=== PATIENT | female | born 1970 | race Caucasian/White ===

== ENCOUNTER → 2016-11-02 | Outpatient (CLI) | payer BC | END | disposition home or self-care (01) | LOC: C.PAPS 14:24 | PROVIDERS: ATTEND Obstetrics & Gynecology | DX: Z01.419 Encounter for gynecological examination (general) (routine) without abnormal findings (principal) ==

== ENCOUNTER → 2016-11-17 | Outpatient (CLI) | payer BC ==
--- NOTE | 2016-11-21 12:26 | MAMMOGRAPHY REPORT ---
BILATERAL DIGITAL SCREENING MAMMOGRAM TOMOSYNTHESIS WITH CAD: 11/17/2016 CLINICAL HISTORY: Routine screening. Patient has no complaints. TECHNIQUE: Breast tomosynthesis in addition to standard 2D mammography was performed. Current study was also evaluated with a Computer Aided Detection (CAD) system. COMPARISON: Comparison is made to exams dated: 07/28/2015 mammogram, 08/01/2014 mammogram, 01/08/2014 ma mmogram, 07/04/2013 mammogram, and 07/01/2013 mammogram. The 2016 mammogram tomosynthesis images co uld only be viewed on the CD. BREAST COMPOSITION: The tissue of both breasts is heterogeneously dense, which may obscure small ma sses. FINDINGS: There is an oval partially circumscribed and partially obscured 17 mm mass seen within th e left upper outer quadrant, best seen on the tomosynthesis images, which is increased compared to t he 2016 exam. Recommend ultrasound for further evaluation. This likely represents a cyst. The remainder of both breasts demonstrate no suspicious masses, calcifications, or areas of architec tural distortion. Scattered bilateral benign-appearing calcifications are again noted. A few other smaller circumscribed benign-appearing masses are seen bilaterally, which are stable and likely rep resent cysts. IMPRESSION: ACR BI-RADS CATEGORY 0: INCOMPLETE EVALUATION: NEED ADDITIONAL IMAGING EVALUATION Left upper outer quadrant breast mass, for which additional imaging evaluation is recommended. The patient will be called to schedule an appointment. Approximately 10% of breast cancers are not detected with mammography. A negative mammographic repor t should not delay biopsy if a clinically suggestive mass is present. Linda Macario M.D. /:11/18/2016 17:04:09 Lead Blender: Krystin Epperson, [facility] letter sent: Addl Imaging 0 BI-RADS Code: ACR BI-RADS Category 0: Incomplete Evaluation: Need Additional Imaging Evaluation
== END | disposition home or self-care (01) ==
LOC: C.MAMM 10:07
PROVIDERS: ATTEND Obstetrics & Gynecology
DX: Z12.31 Encounter for screening mammogram for malignant neoplasm of breast (principal); N63 Unspecified lump in breast

== ENCOUNTER → 2016-11-28 | Outpatient (CLI) | payer BC ==
--- NOTE | 2016-11-28 16:06 | MAMMOGRAPHY REPORT ---
ULTRASOUND OF LEFT BREAST: 11/28/2016 CLINICAL HISTORY: 45-year-old woman called back from screening mammography for a 17 mm partially cir cumscribed and partially obscured mass in the upper outer approximate 1:00 left breast. COMPARISON: Comparison: Prior mammograms dated 07/01/2013, 01/08/2014, 08/01/2014, 08/07/2015 and . FINDINGS: Real-time high-resolution ultrasound was performed in the superior and lateral left breas t. In the 12:00 axis, 4 cm from the nipple, there is an oval circumscribed anechoic simple cyst wit h posterior acoustic enhancement, measuring 12.6 x 7.7 x 15.8 mm. This correlates well with the dom inant, partially circumscribed mammographic mass and is benign. Incidental note is made of other be nign anechoic simple cysts within the 2:00 left breast, 2 cm from the nipple, measuring 7.2 x 3.6 x 7.4 mm, and elsewhere in the 12:00 axis. However, there is a hypoechoic solid versus cystic mass in the 1:30 left breast, 4 cm from the nipple, measuring 5.0 x 4.6 x 6.1 mm. This could represent a c omplicated cyst as a possible fluid fluid level is identified. Nevertheless, a short interval follo w-up targeted left breast ultrasound in the 1:30 axis is recommended to ensure stability in 6 months . IMPRESSION: ACR-BI-RADS CATEGORY 3: PROBABLY BENIGN - FOLLOW-UP RECOMMENDED 1. The partially circumscribed and obscured dominant 17 mm mass in the upper outer quadrant of the left breast correlates with a benign anechoic simple cyst on ultrasound. No further workup is neede d at this time. 2. Incidental note is made of a hypoechoic 6 mm solid versus cystic mass in the 1:30 left breast, 4 cm from the nipple, which could represent a complicated cyst or benign fibroadenoma. A short inter carolyne follow-up targeted left breast ultrasound is recommended to ensure stability in 6 months. These results and recommendations were discussed with the patient at the time of the exam. She tent atively scheduled a follow-up appointment prior to leaving our department. Erlinda Meza M.D. ay/:11/28/2016 14:47:52 Vocational Horticulture Instructor: Dr. Erlinda Meza, [facility] letter sent: Follow Up Recommended 3 BI-RADS Code: ACR-BI-RADS Category 3: Probably Benign
== END | disposition home or self-care (01) ==
LOC: C.MAMM 13:51
PROVIDERS: ATTEND Obstetrics & Gynecology
DX: N63 Unspecified lump in breast (principal); N60.02 Solitary cyst of left breast

== ENCOUNTER → 2017-11-21 | Outpatient (CLI) | payer OTHER ==
--- NOTE | 2017-11-21 12:47 | MAMMOGRAPHY REPORT ---
BILATERAL DIGITAL DIAGNOSTIC MAMMOGRAM TOMOSYNTHESIS WITH CAD AND TARGETED BILATERAL ULTRASOUND: 2017 CLINICAL HISTORY: 46-year-old woman presents at time of annual screening exam but also close follow-u p of a probably benign hypoechoic mass identified in the 1:30 left breast on ultrasound. She has a h istory of numerous cysts seen in the left breast on ultrasound, compatible with fibrocystic change. TECHNIQUE: Bilateral breast tomosynthesis in addition to standard 2D mammography was performed. Curre nt study was also evaluated with a Computer Aided Detection (CAD) system. COMPARISON: Comparison is made to exams dated: 05/31/2017 ultrasound, 11/28/2016 ultrasound, 11/17/2016 mammogram - [facility], 07/28/2015 mammogram, 08/01/2014 mammogram, and 01/08/2014 mammo gram. BREAST COMPOSITION: The tissue of both breasts is heterogeneously dense, which may obscure small mas ses. FINDINGS: There are multiple bilateral circumscribed masses scattered in the breasts, which is a typi jade benign mammographic pattern. The dominant 17 mm circumscribed oval mass in the upper outer jo ann roximate 12:00 to 1:00 left breast is stable in size comparing to the prior mammogram. This was prev iously documented to represent a simple cyst on ultrasound. There is a newly visualized, 8.5 x 7.6 m m lobulated and circumscribed mass in the lateral posterior right breast on CC tomosynthesis slice 17 /67, for which further evaluation with ultrasound was performed. There is no suspicious spiculated o r irregular mass, focal area of architectural distortion, developing asymmetry or suspicious cluster of microcalcification. Targeted ultrasound was performed in the lateral right breast and upper outer quadrant of the left br east. In the 130 left breast, 4 cm from the nipple, a circumscribed round hypoechoic solid versus cy stic mass is again identified, measuring 4.6 x 4.9 x 5.2 mm. This has not significantly changed in s ize or appearance dating back to November 28, 2016, at which time it measured 5.0 x 4.6 x 6.1 mm. A lobula evelia cyst versus cyst cluster is again seen in the 2:00 left breast, 2 cm from the nipple, measuring 1 2.3 mm. A dominant circumscribed oval cyst in the 12:00 left breast, 4 cm from the nipple, measures 14 mm and there is an adjacent 9 mm anechoic cyst also identified in the 12:00 left breast. Scanning performed in the lateral right breast demonstrates a small lobulated anechoic cyst in the 7: 00 axis, 4 cm from the nipple, measuring 3.9 x 3.6 x 5.1 mm. There are 3 abutting anechoic benign cy sts in the 8:00 right breast, 2 cm from the nipple, measuring 3.3 x 6.1 x 9.5 mm in conglomerate, whi ch may possibly correspond with the newly visualized lobulated mammographic mass in the lateral right breast. No suspicious solid mass is seen throughout the lateral right breast on targeted ultrasound . IMPRESSION: ACR-BI-RADS CATEGORY 3: PROBABLY BENIGN, TARGETED ULTRASOUND ACR-BI-RADS CATEGORY 3: PRO BABLY BENIGN 1. There is stable sonographic appearance of a circumscribed hypoechoic 5.2 mm mass in the 1:30 left breast on ultrasound. Another 12 month follow-up targeted ultrasound is recommended to ensure at le ast 2 years of sonographic stability to confirm benignity. 2. There is no mammographic evidence of multiple bilateral circumscribed masses, thought to correlat e with numerous bilateral benign cysts on ultrasound. A newly visualized lobulated and circumscribed 8.5 mm mass in the lateral right breast is thought to correspond with 3 adjacent/abutting benign cys ts in the 8:00 right breast on ultrasound. Overall, would recommend bilateral diagnostic tomosynthes is mammography in 1 year, with repeat targeted left breast ultrasound at that time. These results and recommendations were discussed with the patient at the time of the exam. She tenta tively scheduled a follow-up appointment prior to leaving our department. Approximately 10% of breast cancers are not detected with mammography. A negative mammographic report should not delay biopsy if a clinically suggestive mass is present. Erlinda Meza M.D. ay/:11/21/2017 12:26:56 Die Cast Engineer: Kcaie MAHER)(Shandra), [facility] letter sent: Follow Up Recommended 3 BI-RADS Code: ACR-BI-RADS Category 3: Probably Benign Ultrasound BI-RADS: ACR-BI-RADS Category 3: Pr obably Benign
== END | disposition home or self-care (01) ==
LOC: C.MAMM 09:24
PROVIDERS: ATTEND Obstetrics & Gynecology
DX: R92.8 Other abnormal and inconclusive findings on diagnostic imaging of breast (principal); N63.20 Unspecified lump in the left breast, unspecified quadrant; N63.10 Unspecified lump in the right breast, unspecified quadrant